=== PATIENT | female | born 1975 | race Two or more races ===

== ENCOUNTER 2016-10-06 03:10 | Inpatient (IN) | payer MEDICAID ==
[2016-10-06 03:49] VITALS: BMI 27.2
[2016-10-06 05:41] LABS: HEMOGLOBIN 12.7 gm/l (12.0-16.0); MEAN CELL VOLUME 91.5 fl (81.0-99.0); MEAN CORPUSCULAR HEMOGLOBIN 29.8 pg (27.0-31.0); MEAN CORPUSCULAR HGB CONC 32.6 g/dl (33.0-37.0); RED CELL DISTRIBUTION WIDTH 13.1 % (11.5-14.5)
[2016-10-06] MEDS ORDERED: OXYTOCIN 10 UNITS/ML VIAL ONE (07:22)
[2016-10-06] MEDS ORDERED: PUMP TUBING ONE (07:22)
[2016-10-06] MEDS ORDERED: MINERAL OIL 25 ML BOT ONE (07:22)
[2016-10-06] MEDS ORDERED: LIDOCAINE 1% (PRES FREE) 30 ML VIAL ONE (07:22)
[2016-10-06] MEDS ORDERED: OXYTOCIN IN NS 0 ML IV ONE (07:22)
[2016-10-06] MEDS ORDERED: LIDOCAINE Viscous 2% 15 ML UDCUP ONE (07:22)
[2016-10-06] MEDS ORDERED: OXYTOCIN 10 UNITS/ML VIAL IM ONE (07:29)
--- NOTE | 2016-10-06 07:52 | US ---
OB LIMITED HISTORY: Intermittent bleeding. COMPARISONS: None FINDINGS: Multiple grayscale, color-flow and duplex Doppler images during Limited OB ultrasound are obtained. A single intrauterine gestation is identified in a vertex position. heart tones are present at 150 bpm. Placenta is anterior without evidence of previa or abruption. Amniotic fluid volume appears low, though this is not specifically measured. IMPRESSION: Anterior placenta without evidence of previa or abruption. heart tones are noted at 150 bpm. Amniotic fluid volume appears mostly low though this is not specifically measured. Follow-up as clinically warranted. Preliminary report was provided by Mike at approximately 0634 hours on 10/06/2016. This report differs from the preliminary report and findings were called to Dr. Sandoval at approximately 0747 hours on 10/06/2016. She states the patient has started active labor.
[2016-10-06] MEDS ORDERED: LIDOCAINE 1% (PRES FREE) 30 ML VIAL SUB-Q ONE (09:12)
--- NOTE | 2016-10-06 09:37 | PCMAN ---
OB Admission Note - History : 4 Term: 2 : 0 Abortions (S&E): 1 Livin Gestational Age (weeks): 36 Days (#/7): 6 Admit Cervical Dilation:: 5 Admit Cervical Effacement (%):: 80 Admit Station:: -3 Admit Presentaton:: cephalic Membrane Status: Bulging Labor Onset (Date): 10/06/16 Labor Onset (Time): 02:00 Contractions: Yes Contraction Frequency:: q2-5min Heart Rate:: 135 (mod cesar/+accels/no decels) Status:: Cat 1 EFW:: 6lb Summary of Course:: course c/b AMA, GDMA1 - well controlled - Labs Blood Type: O (+) positive Rubella Status: Immune GBS Status: Negative Abnormal Labs: None - Review of Systems +vaginal spotting this morning, increased while in FBC. Ctx started around 2a. Good FM, no LOF No MORIN, Blurry vision, epigastric pain, edema - Physical Exam General: Afebrile Psych/Mental Status: Mood/Affect Appropriate, Judgment/Insight Intact Neurological: Grossly Intact, Alert HEENT: Atraumatic, EOMI Lungs: Clear to Auscultation Bilaterally, Normal Air Movement Cardiovascular: Regular Rate and Rhythm, Normal S1, Normal S2, No Murmur Abdomen: Normal Bowel Sounds - Problems (1) labor Status: Acute Code: O60.00Assessment/Plan: 40 yo @ 36w6d by L=7, admitted for labor. Anticipate Vaginal bleeding: likely bloody show. No previa on u/s. Fetus in cephalic position. GDMA1: well controlled. Fasting glucose 79. Pain: declines meds GBS neg Peds: [place] (2) GDM (gestational diabetes mellitus), class A1 Status: Acute Code: O24.410Assessment/Plan: stable fasting glucose.
[2016-10-06] MEDS ORDERED: OXYCODONE HCL 5 MG TABLET PO PRN (09:50)
[2016-10-06] MEDS ORDERED: HYDROCODONE/ACETAMINOPHEN 5/325MG TABLET PO PRN (09:50)
[2016-10-06] MEDS ORDERED: BENZOCAINE/MENTHOL 60 APPLIC/BOT TP PRN (09:50)
[2016-10-06] MEDS ORDERED: OXYTOCIN IN NS 167 ML IV PRN (09:50)
[2016-10-06] MEDS ORDERED: LANOLIN 50 APPLIC/7G TUBE TP PRN (09:50)
[2016-10-06] MEDS ORDERED: DOCUSATE SODIUM 100 MG CAPSULE PO PRN (09:50)
--- NOTE | 2016-10-06 10:11 | PCMDEL ---
Delivery Note - Labor 1st stage (hr/min):: 6h47m 2nd stage (hr/min):: 12m 3rd stage (hr/min):: 4m Total (hr/min):: 7h3m Pushed (hr/min):: 10m - Delivery Delivery (Date): 10/06/16 Delivery (Time): 08:59 Infant Gender: Female Presentation: Cephalic Position: OA Umbilical Cord: 3 Vessel Delayed Cord Clamping:: 2-3 min 1 Minute Total: 9 5 Minute Total: 9 Placenta:: intact EBL:: 250cc Perineum:: small 2nd degree lac repaired in standard fashion Suture:: 3-0 Vicryl Anesthesia/Meds:: local lidocaine for repair Length ROM:: 22m Comments:: Uncomplicated of (36w6d) over intact perineum. Cord clamping delayed by 2 min, cut by FOB. Active management of 3rd stage with pitocin IM. A small 2nd degree lac repaired in standard fashion. Fundus firm, 2 below U. Hemostasis confirmed. EBL 250cc.
[2016-10-06] MEDS: IBUPROFEN 600 MG TABLET PO PRN (12:53)
[2016-10-07] MEDS: IBUPROFEN 600 MG TABLET PO PRN ×3 (04:52→21:48)
[2016-10-07 06:25] LABS: HEMATOCRIT 33.5 % (37.0-47.0); HEMOGLOBIN 11.1 gm/l (12.0-16.0)
[2016-10-08] MEDS: IBUPROFEN 600 MG TABLET PO PRN (05:09)
[2016-10-08 08:34] VITALS: BP 119/78
--- NOTE | 2016-10-08 11:02 | PDOC39B ---
Hospital Course: ADMIT DATE: 10/06/16 DISCHARGE DATE: 10/08/16 ADMISSION DIAGNOSES: 36 week iup, active labor. PROCEDURES: HISTORY OF PRESENT ILLNESS: 40 year old G4 T2 L2 at 36 weeks 6 days presenting with active labor and . HOSPITAL COURSE: The patient presented in active labor and delivered rapidly. By day of discharge the patient is ambulating, eating, voiding, and passing flatus without difficulty. Pain is controlled and lochia is appropriate. She is breast feeding. - Physical Exam Vital Signs: Temp Pulse Resp BP Pulse Ox 97.8 F 61 16 119/78 10/08/16 08:23 10/08/16 08:23 10/08/16 08:23 10/08/16 08:23 General: Afebrile, No Acute Distress Neurological: Alert Lungs: Clear to Auscultation Bilaterally Cardiovascular: Regular Rate and Rhythm, No Murmur Fundus: Firm, Midline, Below Umbilicus Extremities: Full ROM, No Edema Skin: Warm, Dry, Intact, No Rash - Discharge Diagnosis (1) GDM (gestational diabetes mellitus), class A1 Status: AcuteAssessment/Plan: stable fasting glucose. No issues. F/U with PCP in clinic. (2) delivery Status: AcuteAssessment/Plan: DOing well. F/U with PCP in clinic. Mirena? - Discharge Plan Condition: Good Disposition: Home Follow-Up: Fabiola Amezquita MD [Primary Care Provider] - In 6 weeks
--- NOTE | 2016-10-08 11:38 | PDOC44 ---
- Subjective Day: 1 this note is actually from 10/07/16 Reports Pain Tolerable, Reports , Reports Lochia Light, Reports Tolerating Regular Diet - Objective Temp Pulse Resp BP Pulse Ox 97.8 F 61 16 119/78 10/08/16 08:23 10/08/16 08:23 10/08/16 08:23 10/08/16 08:23 Current Medications Generic Name Dose Route Start Last Admin Trade Name Freq PRN Reason Stop Dose Admin Acetaminophen/Hydrocodone Bitart 1 - 2 tab 10/06/16 09:50 [place] 5/325 PO Q4H PRN Pain (Moderate) Benzocaine/Menthol 1 applic 10/06/16 09:50 10/06/16 12:54 Dermoplast TP 1 bot PRN PRN Administration Patient Comfort Docusate Sodium 100 mg 10/06/16 09:50 Colace PO DAILY PRN Comfort Emollient Ointment 1 applic 10/06/16 09:50 [id number] TP PRN PRN sore nipples OXYTOCIN IN NS 167 mls @ 167 mls/hr 10/06/16 09:50 Oxytocin-Ns 30 Unit/500 Ml IV X1 PRN Bleeding/3rd stage labor Ibuprofen 600 mg 10/06/16 09:50 10/08/16 05:09 Motrin PO 600 mg Q6H PRN Administration Pain (Mild) Oxycodone HCl 5 - 10 mg 10/06/16 09:50 Roxicodone PO Q3H PRN Pain (Severe) Sodium Chloride 10 ml 10/06/16 09:50 Normal Saline 10ml Flush IV PRN PRN IV Flush - Physical Exam General: Afebrile Psych/Mental Status: Mood/Affect Appropriate Neurological: Alert Lungs: Clear to Auscultation Bilaterally Cardiovascular: Regular Rate and Rhythm Breast: Soft Fundus: Firm Abdomen: Normal Bowel Sounds Lochia: Light Rectal Exam: Deferred Extremities: Other (nt, no edema) Skin: Normal Color - Problems:Assessment/Plan (1) delivery Status: AcuteAssessment/Plan: DOing well. doing well, routine care (2) GDM (gestational diabetes mellitus), class A1 Status: AcuteAssessment/Plan: stable fasting glucose. No issues. F/U with PCP in clinic. Disposition: Anticipate DC Home Tomorrow
== END 2016-10-08 12:45 | disposition home or self-care (01) | DRG 775 ==
LOC: FBC 03:10 → FBCOUT 03:10 → FBC 07:20 → FBCOUT 07:20
PROVIDERS: ADMIT Family Medicine; ATTEND Family Medicine
PROC: 10E0XZZ Delivery of Products of Conception, External Approach (ICD-10-PCS; principal; 2016-10-06)
PROC: 0KQM0ZZ Repair Perineum Muscle, Open Approach (ICD-10-PCS; 2016-10-06)
DX: O60.14X0 Preterm labor third trimester with preterm delivery third trimester, not applicable or unspecified (principal); O70.1 Second degree perineal laceration during delivery; O09.523 Supervision of elderly multigravida, third trimester; Z3A.36 36 weeks gestation of pregnancy; Z37.0 Single live birth; O24.420 Gestational diabetes mellitus in childbirth, diet controlled